=== PATIENT | female | born 1995 | race Two or more races ===

== ENCOUNTER 2019-01-14 09:51 | Emergency (ER) | payer OTHER ==
[~2019-01-14] VITALS: Ht 157.5 cm; Wt 40.8 kg
[2019-01-14 09:45] VITALS: BP 122/68
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
[2019-01-14] MEDS ORDERED: Acetaminophen 500mg (ES) tab ORAL ONE (10:00)
[2019-01-14] MEDS ORDERED: LORazepam 0.5mg tab ORAL ONE (10:00)
[2019-01-14] MEDS ORDERED: Tetanus/Diptheria/Pertussis IM ONE (10:00)
[2019-01-14 11:32] VITALS: BP 87/50
--- NOTE | 2019-01-14 11:32 | NUR ---
ED Nurse Note: Pt sleeping on bed comfortably. No sign of acute distress.
[2019-01-14] MEDS ORDERED: IBUPROFEN600 MG ORAL (11:44)
[2019-01-14 11:46] VITALS: BP 87/50
--- NOTE | 2019-01-14 11:46 | NUR ---
ER DISCHARGE NOTE: Patient is cleared to be discharged per ERMD, pt is aox4, on room air, with stable vital signs. pt was given dc and prescription instructions, pt was able to verbalize understanding, pt id band removed. pt is able to ambulate with steady gait. pt took all belongings.
--- NOTE | 2019-01-14 12:44 | Diagnostic Imaging Report ---
Indication: Neck pain Technique: Continuous helical imaging of the cervical spine was obtained transaxially from the skull base to the upper thoracic spine. 2-D coronal and sagittal reformatted images were obtained. Automatic Exposure Control was utilized. Total Dose length Product (DLP): [address] Dose Index Volume (CTDIvol): 0.25, 10.1 mGy Comparison: None Findings: There is no evidence of an acute fracture or malalignment. Atlantoaxial alignment appears normal. Height and configuration of the vertebral bodies and intervertebral discs are within normal limits. Uncovertebral joints and facets are unremarkable. There is no soft tissue swelling. Impression: Negative cervical spine CT The CT scanner at [facility] is accredited by the [employer] and the scans are performed using dose optimization techniques as appropriate to a performed exam including Automatic Exposure control.
--- NOTE | 2019-01-14 12:44 | Diagnostic Imaging Report ---
Indication: Headache Technique: Contiguous 5 mm thick transaxial imaging of the head obtained in a Siem[employer] Sensation [address] scanner. Soft tissue and bone windows generated. Automatic Exposure Control was utilized. Total Dose length Product (DLP): [address] Dose Index Volume (CTDIvol): 70.38 mGy Comparison: none Findings: The size and configuration of the cortical sulci, basal cisterns, and ventricles are within normal limits for age. There is no mass effect, midline shift, or edema identified. There is no evidence of acute hemorrhage or abnormal intra-axial or extra-axial fluid collections. The bones and soft tissues are unremarkable. Impression: No mass effect, edema or acute bleed. The CT scanner at [facility] is accredited by the [employer] and the scans are performed using dose optimization techniques as appropriate to a performed exam including Automatic Exposure control.
== END 2019-01-14 11:46 | disposition home or self-care (01) ==
LOC: EDBD 09:51 → EMR 10:15
DX: M54.2 Cervicalgia (principal); S00.411A Abrasion of right ear, initial encounter; S80.811A Abrasion, right lower leg, initial encounter; R51 Headache; V43.62XA Car passenger injured in collision with other type car in traffic accident, initial encounter; Y92.410 Unspecified street and highway as the place of occurrence of the external cause; Z23 Encounter for immunization; F41.9 Anxiety disorder, unspecified
CPT/HCPCS: 70450; 72125; 90471; 90715; 99284